=== PATIENT | male | born 1970 | race African-American/Black ===

== ENCOUNTER → 2016-03-29 | Emergency (ER) | payer SELFPAY ==
[~2016-03-29] VITALS: Ht 170.2 cm; Wt 113.4 kg
[2016-03-29 01:21] VITALS: BP 128/69
[2016-03-29 01:21] LABS: MEAN CORPUSCULAR HEMOGLOBIN 28.3 PG (27.0-31.0); MEAN CORPUSCULAR HGB CONC 32.8 G/DL (32.0-36.0); MEAN CORPUSCULAR VOLUME 86 FL (80-99); MEAN PLATELET VOLUME 9.7 FL (6.5-10.1); PLATELET COUNT 192 K/UL (150-450); RED BLOOD COUNT 4.83 M/UL (4.70-6.10); RED CELL DISTRIBUTION WIDTH 13.6 % (11.6-14.8); WHITE BLOOD COUNT 10.3 K/UL (4.8-10.8)
[2016-03-29 01:35] LABS: ALANINE AMINOTRANSFERASE 34 U/L (3-41); ALBUMIN/GLOBULIN RATIO 1.5 (1.0-2.7); ANION GAP 33 (5-15); ASPARTATE AMINO TRANSFERASE 32 U/L (5-40); CALCIUM 9.4 mg/dL (8.6-10.2); CARBON DIOXIDE 15 mEQ/L (20-30); CHLORIDE 94 mEQ/L (98-107); CREATININE 1.5 mg/dL (0.7-1.2); GLOMERULAR FILTRATION RATE 50.2 mL/min (>60); HEMOLYSIS 17; POTASSIUM 3.3 mEQ/L (3.4-4.9); SODIUM 142 mEQ/L (135-145); TROPONIN I < 0.30 ng/mL (<=0.30)
[2016-03-29 01:45] LABS: CKMB 2.5 ng/mL (< 6.7)
[2016-03-29 02:47] VITALS: BP 120/64
[2016-03-29 03:26] LABS: TROPONIN I < 0.30 ng/mL (<=0.30)
--- NOTE | 2016-03-29 03:50 | Emergency Room Report ---
History of Present Illness General Chief Complaint: Chest Pain Source: Patient Present Illness HPI Is a 46-year-old male with history of sleep apnea requiring CPR. He present with chief complaint of chest pain/pressure. He was at a libertarian and has been drinking heavily tonight. He said he had some marijuana brownie. Afterward he said he didn't feel right. He felt anxious and shaky. [place] chest pressure. This is worse after he fell asleep. He woke up like this. He normally uses a Z -Arturo. If not he'll stop breathing and get very anxious. EMS gave him aspirin. He did not get nitroglycerin because he took Cialis an hour ago. He denies any other complaint right now. No exertional component. No diaphoresis. No radiation. Allergies: Coded Allergies: No Known Allergies (Unverified , 03/29/16) Patient History Past Medical History: see triage record, old chart reviewed Past Surgical History: none Pertinent Family History: none Social History: Reports: alcohol use Immunizations: other Reviewed Nursing Documentation: PMH: Agreed, PSxH: Agreed Nursing Documentation-PM Past Medical History: No Stated History Review of Systems Eye: Denies: blurred vision, eye pain ENT: Denies: ear pain, nose congestion, throat swelling Respiratory: Denies: cough, shortness of breath Cardiovascular: Reports: chest pain, Denies: palpitations Gastrointestinal: Denies: abdominal pain, diarrhea, nausea, vomiting Musculoskeletal: Denies: back pain, joint pain Skin: Denies: rash Neurological: Denies: headache, numbness Endocrine: Denies: increased thirst, increased urine Hematologic/Lymphatic: Denies: easy bruising All Other Systems: negative except mentioned in HPI Physical Exam Vital Signs Date Time Temp Pulse Resp B/P Pulse Ox O2 Delivery O2 Flow Rate FiO2 03/29/16 01:04 98.8 116 25 144/78 99 Room Air 03/29/16 01:31 30 vitals normal except for tachycardia [id number] EP Interpretation: reviewed, normal General Appearance: well appearing, no apparent distress, alert, obese Head: normocephalic, atraumatic Eyes: bilateral eye EOMI, bilateral eye PERRL ENT: hearing grossly normal, normal pharynx Neck: full range of motion, supple, no meningismus Respiratory: chest non-tender, lungs clear, normal breath sounds Cardiovascular #1: regular rate, rhythm, no murmur Gastrointestinal: normal bowel sounds, non tender, no mass, no organomegaly, no bruit, non-distended Musculoskeletal: back normal, gait/station normal, normal range of motion Neurologic: alert, oriented x3 Psychiatric: anxious Skin: warm/dry Medical Decision Making Diagnostic Impression: Primary Impression: Chest pain Qualified Codes: R07.9 - Chest pain, unspecified Additional Impressions: Morbid obesity with BMI of 40.0-44.9, adult Sleep apnea in adult ER Course She presents with chest pain probably secondary to alcohol and marijuana abuse. He felt better after this and on BiPAP. No evidence of ACS, PE, dissection to name a few. Blood pressure and heart rate normal range now. We'll discharge home. Lab Results Impression labs normal EKG Diagnostic Results Rate: normal, tachycardiac Rhythm: NSR ST Segments: no acute changes Rhythm Strip Diag. Results EP Interpretation: yes Rate: 98 Rhythm: NSR, no PVC's, no ectopy Chest X-Ray Diagnostic Results EP Interpretation: Yes Findings: no consolidation, no effusion, no pneumothorax, no acute cardiopulmonary disease Number of Views: 1 Last Vital Signs Date Time Temp Pulse Resp B/P Pulse Ox O2 Delivery O2 Flow Rate FiO2 03/29/16 03:30 95 12 98 Nasal 30 03/29/16 02:47 98.8 120/64 Status: improved Disposition: HOME, SELF-CARE Condition: Stable Patient Instructions: Nonspecific Chest Pain Additional Instructions: Abstain from alcohol and drugs. Followup with your DrMaira in 7 days. Return if worse. JOSE ROSAS M.D. Mar 29, 2016 03:50
[2016-03-29 04:08] VITALS: BP 124/71
[2016-03-29 04:16] VITALS: BP 124/71
[2016-03-29 08:38] LABS: BASOPHILS % (MANUAL) 1 % (0-2); LYMPHOCYTES % (MANUAL) 62 % (20-45); NEUTROPHILS % (MANUAL) 25 % (45-75); TOTAL CELLS COUNTED 100
[2016-03-29 08:40] LABS: BAND NEUTROPHILS % (MANUAL) 0 % (0-8); EOSINOPHILS % (MANUAL) 0 % (0-3); PLATELET ESTIMATE ADEQUATE; PLATELET MORPHOLOGY NORMAL
--- NOTE | 2016-03-29 12:01 | Diagnostic Imaging Report ---
Indication: Chest pain Technique: One view of the chest Comparison: none Findings: Lungs and pleural spaces are clear. Heart size is normal. Inspiration is suboptimal. Impression: No acute process
--- NOTE | 2016-03-29 12:13 | Cardiology Report ---
APPROVED REPORT EKG Measurement Heart [id number] Sinus tachycardia Nonspecific T wave abnormality Abnormal ECG
[2016-03-30 09:34] LABS: OTHERS PATHOLOGIST COMMENT
== END | disposition home or self-care (01) ==
LOC: EDBD 00:46 → EMR 01:20
DX: R07.89 Other chest pain (principal); E66.01 Morbid (severe) obesity due to excess calories; Z68.39 Body mass index [BMI] 39.0-39.9, adult; G47.30 Sleep apnea, unspecified; F12.10 Cannabis abuse, uncomplicated; F10.10 Alcohol abuse, uncomplicated
CPT/HCPCS: 36415; 71010; 80053; 82550; 82553; 84484; 85007; 85025; 93005; 94664; 99284